=== PATIENT | male | born 2000 ===

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

== ENCOUNTER → 2022-08-12 | Outpatient (CLI) | payer OTHER ==
[2022-08-12 08:54] LABS: BASOPHILS ABSOLUTE AUTO 0.03 K/mm3 (0.00-0.23); BASOPHILS PERCENT AUTO 1 % (0-2); EOSINOPHILS ABSOLUTE AUTO 0.14 K/mm3 (0.00-0.68); EOSINOPHILS PERCENT AUTO 3 % (0-6); Hematocrit 47.2 % (37.0-53.0); Hemoglobin 16.2 g/dL (13.5-17.5); IMMATURE GRAN ABSOLUTE AUTO 0.01 K/mm3 (0.00-0.10); IMMATURE GRAN PERCENT AUTO 0 % (0-1); LYMPHOCYTES ABSOLUTE AUTO 1.87 K/mm3 (0.84-5.20); LYMPHOCYTES PERCENT AUTO 36 % (21-46); MONOCYTES ABSOLUTE AUTO 0.33 K/mm3 (0.16-1.47); MONOCYTES PERCENT AUTO 6 % (4-13); Mean Corpuscular HGB 30.9 pg (26.0-34.0); Mean Corpuscular HGB Conc 34.3 g/dL (31.5-36.5); Mean Corpuscular Volume 90 fL (80-100); Mean Platelet Volume 9.9 fL (9.1-12.4); NEUTROPHILS ABSOLUTE AUTO 2.87 K/mm3 (1.96-9.15); NEUTROPHILS PERCENT AUTO 55 % (41-73); Platelet Count 222 K/mm3 (150-400); RDW Coefficient Variation 12.8 % (11.7-14.2); RDW Standard Deviation 42.1 fL (35.1-46.3); Red Blood Cell Count 5.25 M/mm3 (4.30-5.90); White Blood Cell Count 5.25 K/mm3 (4.00-11.30)
[2022-08-12 09:10] LABS: Albumin, Blood 4.4 g/dL (3.4-5.0); Albumin/Globulin Ratio 1.2 (0.8-1.8); Bilirubin, Total 0.4 mg/dL (0.1-1.0); Bun/Creatinine Ratio 14.4 (12.0-20.0); Calcium, Blood 9.1 mg/dL (8.5-10.1); Creatinine, Blood 0.97 mg/dL (0.60-1.20); Globulin, Blood 3.8 g/dL (2.2-4.0); Total Protein, Blood 8.2 g/dL (6.4-8.2)
== END | disposition home or self-care (01) ==
LOC: LAB 08:50 → LAB SHORT 08:50
PROVIDERS: Physician Assistant
DX: R53.83 Other fatigue (principal); E66.9 Obesity, unspecified
CPT/HCPCS: 80053; 82150; 85025

== ENCOUNTER 2024-04-14 17:28 | Emergency (ER) | payer OTHER ==
[~2024-04-14] VITALS: Ht 185.4 cm; Wt 110.3 kg
[~2024-04-14 17:28] MED LIST changes: -BENZ100A PO; -FAMO20 PO; -IBUP400 PO
[2024-04-14] MEDS ORDERED: BENZ100A PO (22:14)
[2024-04-14] MEDS ORDERED: Ketorolac Tromethamine 30mg Vial IV ONE (23:25)
[2024-04-15] MEDS ORDERED: Ketorolac Tromethamine 30mg Vial IM ONE (00:30)
[2024-04-15 04:58] LABS: BASOPHILS ABSOLUTE AUTO 0.05 K/mm3 (0.00-0.23); BASOPHILS PERCENT AUTO 1 % (0-2); EOSINOPHILS ABSOLUTE AUTO 0.27 K/mm3 (0.00-0.68); EOSINOPHILS PERCENT AUTO 3 % (0-6); Hematocrit 38.5 % (37.0-53.0); Hemoglobin 13.2 g/dL (13.5-17.5); IMMATURE GRAN ABSOLUTE AUTO 0.03 K/mm3 (0.00-0.10); IMMATURE GRAN PERCENT AUTO 0 % (0-1); LYMPHOCYTES ABSOLUTE AUTO 2.63 K/mm3 (0.84-5.20); LYMPHOCYTES PERCENT AUTO 25 % (21-46); MONOCYTES ABSOLUTE AUTO 1.01 K/mm3 (0.16-1.47); MONOCYTES PERCENT AUTO 10 % (4-13); Mean Corpuscular HGB 31.6 pg (26.0-34.0); Mean Corpuscular HGB Conc 34.3 g/dL (31.5-36.5); Mean Corpuscular Volume 92 fL (80-100); Mean Platelet Volume 9.9 fL (9.1-12.4); NEUTROPHILS ABSOLUTE AUTO 6.39 K/mm3 (1.96-9.15); NEUTROPHILS PERCENT AUTO 62 % (41-73); Platelet Count 199 K/mm3 (150-400); RDW Coefficient Variation 13.2 % (11.7-14.2); RDW Standard Deviation 44.5 fL (35.1-46.3); Red Blood Cell Count 4.18 M/mm3 (4.30-5.90); White Blood Cell Count 10.38 K/mm3 (4.00-11.30)
[2024-04-15 05:14] LABS: International Normalized Ratio 1.02; Prothrombin Time Results 10.9 Sec (9.7-11.5)
[2024-04-15 05:21] LABS: Albumin, Blood 3.6 g/dL (3.4-5.0); Albumin/Globulin Ratio 1.1 (0.8-1.8); Bilirubin, Total 0.5 mg/dL (0.1-1.0); Bun/Creatinine Ratio 18.2 (12.0-20.0); Calcium, Blood 8.8 mg/dL (8.5-10.1); Creatinine, Blood 0.77 mg/dL (0.60-1.20); Globulin, Blood 3.3 g/dL (2.2-4.0); Potassium, Blood 3.9 mmol/L (3.5-5.5); Total Protein, Blood 6.9 g/dL (6.4-8.2)
[2024-04-15 08:02] LABS: Body Fluid Crystals NEG (NEGATIVE)
[2024-04-15 09:14] LABS: Appearance, Synovial Fluid Clear (Clear); BODY FLUID RBC 0.003 M/mm3 (0-0); Color, Synovial Fluid Pale Yellow (None-P Yel); RBC Count, Synovial Fluid 3000 /mm3 (0-0); WBC Count, Synovial Fluid 74 /mm3 (0-180)
[2024-04-15] MEDS ORDERED: Ketorolac Tromethamine 30mg Vial IV ONE (09:15)
[2024-04-15 10:00] LABS: Lymphs, Synovial Fluid 64 % (0-15); Neutrophils, Synovial Fluid 36 % (0-24)
[2024-04-15 10:10] VITALS: BP 157/83
[2024-04-15] MEDS ORDERED: FAMO20 PO (10:17)
[2024-04-15] MEDS ORDERED: IBUP400 PO (10:17)
== END 2024-04-15 10:40 | disposition home or self-care (01) ==
LOC: ER 17:28
PROVIDERS: Emergency Medicine; Student in an Organized Health Care Education/Training Program
DX: M25.462 Effusion, left knee (principal); M25.562 Pain in left knee; R79.82 Elevated C-reactive protein (CRP); M79.89 Other specified soft tissue disorders; M00.9 Pyogenic arthritis, unspecified; Z79.52 Long term (current) use of systemic steroids; Z79.899 Other long term (current) drug therapy; Z59.89 Other problems related to housing and economic circumstances
CPT/HCPCS: 20610; 36415; 73562-LT; 80053; 83605; 84550; 85025; 85610; 85651; 85730; 86140; 87040; 87077; 89051; 89060; 96372-59; 96374-59; 99283-25; J1885

== ENCOUNTER → 2024-04-14 | Outpatient (CLI) | payer OTHER ==
[~2024-04-14] MED LIST changes: +BENZ100A PO; +FAMO20 PO; +IBUP400 PO
[2024-04-14 16:58] LABS: BASOPHILS ABSOLUTE AUTO 0.06 K/mm3 (0.00-0.23); BASOPHILS PERCENT AUTO 1 % (0-2); EOSINOPHILS ABSOLUTE AUTO 0.17 K/mm3 (0.00-0.68); EOSINOPHILS PERCENT AUTO 2 % (0-6); Hematocrit 40.3 % (37.0-53.0); Hemoglobin 13.9 g/dL (13.5-17.5); IMMATURE GRAN ABSOLUTE AUTO 0.02 K/mm3 (0.00-0.10); IMMATURE GRAN PERCENT AUTO 0 % (0-1); LYMPHOCYTES ABSOLUTE AUTO 2.49 K/mm3 (0.84-5.20); LYMPHOCYTES PERCENT AUTO 24 % (21-46); MONOCYTES ABSOLUTE AUTO 0.92 K/mm3 (0.16-1.47); MONOCYTES PERCENT AUTO 9 % (4-13); Mean Corpuscular HGB Conc 34.5 g/dL (31.5-36.5); Mean Corpuscular Volume 93 fL (80-100); Mean Platelet Volume 10.1 fL (9.1-12.4); NEUTROPHILS ABSOLUTE AUTO 6.71 K/mm3 (1.96-9.15); NEUTROPHILS PERCENT AUTO 65 % (41-73); Platelet Count 210 K/mm3 (150-400); RDW Coefficient Variation 13.2 % (11.7-14.2); Red Blood Cell Count 4.35 M/mm3 (4.30-5.90); White Blood Cell Count 10.37 K/mm3 (4.00-11.30)
[2024-04-14 17:13] LABS: Albumin, Blood 3.9 g/dL (3.4-5.0); Albumin/Globulin Ratio 1.1 (0.8-1.8); Bilirubin, Total 0.6 mg/dL (0.1-1.0); Bun/Creatinine Ratio 18.9 (12.0-20.0); Calcium, Blood 8.5 mg/dL (8.5-10.1); Creatinine, Blood 0.9 mg/dL (0.60-1.20); Globulin, Blood 3.5 g/dL (2.2-4.0); Potassium, Blood 3.9 mmol/L (3.5-5.5); Total Protein, Blood 7.4 g/dL (6.4-8.2); Uric Acid, Blood 4.7 mg/dL (3.5-7.2)
== END | disposition home or self-care (01) ==
LOC: LAB 16:54 → LAB SHORT 16:54
PROVIDERS: Family Medicine
DX: M00.9 Pyogenic arthritis, unspecified (principal)
CPT/HCPCS: 80053; 84550; 85025; 85651; 86140

== ENCOUNTER 2024-06-30 08:29 | Day surgery (SDC) | payer OTHER ==
[2024-06-30] VITALS (12 sets, daily range): BP systolic 149–180; BP diastolic 9–115
[~2024-06-30] VITALS: Ht 190.5 cm; Wt 121.3 kg
[~2024-06-30 08:29] MED LIST changes: +BENZ100A PO; +CeFAZolin Sodium 2,000 MG in NS 100 ML IV SCH; +FAMO20 PO; +IBUP400 PO; +Lactated Ringer's 1,000 ML IV SCH; +TRAM50 PO; +Tranexamic Acid 1,000 MG in NS 100 ML IV SCH
[2024-06-30] MEDS ORDERED: CeFAZolin Sodium 3,000 MG in NS 100 ML IV SCH (08:55)
[2024-06-30] MEDS ORDERED: EpiNEPhrine 1 MG/1 ML 1ML Vial ONE (09:51)
[2024-06-30] MEDS ORDERED: FentaNYL Citrate 50 MCG/ML 2 ML Injection ONE ×2 (09:59→10:50)
[2024-06-30] MEDS ORDERED: propofoL 20 ML IV ONE (09:59)
[2024-06-30] MEDS ORDERED: Ketorolac Tromethamine 30mg Vial ONE (10:18)
[2024-06-30] MEDS ORDERED: Ondansetron HCl 2 MG / ML 2ML Vial ONE (10:19)
[2024-06-30] MEDS ORDERED: Dexamethasone Sod Phos 10 MG/ML 1ML VIAL ONE (10:19)
[2024-06-30] MEDS ORDERED: HYDROmorphone HCl/Pf 1MG SYR ONE ×2 (10:46→13:09)
[2024-06-30] MEDS ORDERED: Lidocaine 1%-Epineph 1:100000 20 ML MDV XX ONE (10:51)
--- NOTE | 2024-06-30 12:04 | NUR ---
06/30/24 1204 Sukh Randolph PT PLACED IN PRONE POSITION @ [id number]
[2024-06-30] MEDS ORDERED: Bupivacaine 0.5% HCl 5 MG/ML 30MLVIAL ONE (12:21)
[2024-06-30] MEDS ORDERED: Sugammadex Sodium 200 MG/2ML SDV (100 MG/ML) ONE (12:30)
[2024-06-30] MEDS ORDERED: OxyCODONE HCL 5 MG TAB PO PRN (13:10)
--- NOTE | 2024-06-30 14:52 | NUR ---
DISCHARGE NOTE PT A&OX4, BREATHING RA, TOLERATING PO INTAKE. ICE TO OPERATIVE KNEE. Dressing to procedure site clean, dry, intact with no visible drainage, swelling, erythema or bruising noted. TOES TO L FOOT ARE PWD PT ABLE TO FEEL AND MOVE THEM, CAP REFILL BRISK. PAPER RX FOR CRUTCHES GIVEN TO PT TO FILL. Discharge instructions reviewed with patient. Patient verbalizes understanding. Copy given to patient to take home. Discharged via wheelchair to private car for ride home.
== END 2024-06-30 14:45 | disposition home or self-care (01) ==
LOC: ORSCMMR 08:29 → ORD 12:30 → ORSCMMR 12:30
PROVIDERS: Orthopaedic Surgery Sports Medicine
PROC: 0SBD0ZZ Excision of Left Knee Joint, Open Approach (ICD-10-PCS; principal; 2024-06-30 10:15)
PROC: 0SBD4ZZ Excision of Left Knee Joint, Percutaneous Endoscopic Approach (ICD-10-PCS; principal; 2024-06-30 10:15)
DX: S83.272A Complex tear of lateral meniscus, current injury, left knee, initial encounter (principal); M25.862 Other specified joint disorders, left knee; M23.42 Loose body in knee, left knee; M94.262 Chondromalacia, left knee; W18.30XA Fall on same level, unspecified, initial encounter; Y93.01 Activity, walking, marching and hiking; J45.909 Unspecified asthma, uncomplicated; Z79.899 Other long term (current) drug therapy
CPT/HCPCS: A9270; J0171; J0690; J1100; J1171; J1885; J2405; J2704; J3010; J7120